=== PATIENT | male | born 1990 | race Caucasian/White ===

== ENCOUNTER 2024-01-12 10:40 | Emergency (ER) | payer OTHER, SELFPAY ==
--- NOTE | ~2024-01-12 | CT_ITS ---
History: Remote history of blunt trauma PROCEDURE: CT head without contrast. COMPARISON: None TECHNIQUE: Axial imaging of the head performed from the skull base to the vertex without IV contrast. Sagittal a nd coronal reformations obtained. DLP: 605 mGy-cm FINDINGS: The ventricles are normal in size, shape and position. There is no mass, mass effect or midline shift. There is no abnormal extra-axial fluid collection or intracranial hemorrhage. Visualized paranasal sinuses are clear. The mastoid air cells are well aerated. No acute displaced fractures within the overlying cranium. Impression: No acute intracranial hemorrhage or suspicious mass effect. Reviewed, dictated and finalized at location A. 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
[2024-01-12 10:44] VITALS: BP 128/74; PULSE 105; RESP 20; TEMP 36.8; O2SAT 98
--- NOTE | 2024-01-12 10:57 | PC.NURSE ---
pt took tylenol and sudafed and sumatriptan
--- NOTE | 2024-01-12 12:49 | ED.HA ---
HPI - Headache General Chief Complaint: Headache Stated Complaint: hit head yest/headache/vomiting Time Seen by Provider: 01/12/24 12:08 History of Present Illness HPI Narrative: 33-year-old male presenting with a headache. States he struck his head on a wall decoration yesterday and had immediate headache. States he has been unable to sleep due to the pain. Also feels nauseated after taking 1 of his 's migraine pills. Related Data Allergies Allergy/AdvReac Type Severity Reaction Status Date / Time No Known Allergies Allergy Verified 06/27/23 14:48 Review of Systems Review of Systems: All systems reviewed & are unremarkable except as noted in HPI and below PMFSH Social History Social History Social History: Smoking status: Smoker, status unknown Smokeless tobacco user: chewing tobacco Second hand tobacco smoke exposure: No Alcohol intake: current Alcohol use details: Pt only drink socially Substance use: never Substance use type: does not use Do You Feel Safe in your Home?: Yes Lack of Transportation: No Lack of Food: Never True Current Housing: I Have Housing Concerned About Future Housing: No Difficulty Paying Gas/Electric Bills: No Difficulty Paying for Meds: No Currently Unemployed: No Education: Don't Know Difficulty w/ Childcare or Family Care: No Living arrangements: with family Occupation/Education: occupation Gender identity (if verbalized by the patient): Male Sexual Orientation (if Verbalized by the Patient): Straight or Heterosexual Spiritual care concerns: No Exam Narrative: GENERAL: Well-appearing, in no acute distress, pleasant and cooperative HEAD: Normocephalic, atraumatic. EYES: PERRLA and EOMI. ENT: Grossly unremarkable NECK: Supple. CHEST: No respiratory distress. HEART: Regular rate and rhythm EXTREMITIES: Normal range of motion SKIN: Warm, dry NEURO: No focal deficits. Alert and oriented x3. PSYCH: Normal mood and affect. Course Vital Signs Vital signs: Vital Signs Temperature 98.2 F 01/12/24 10:44 Pulse Rate 105 H 01/12/24 10:44 Respiratory Rate 20 01/12/24 10:44 Blood Pressure 128/74 01/12/24 10:44 Pulse Oximetry 98 01/12/24 10:44 Oxygen Delivery Room Air 01/12/24 10:44 Temperature 98.2 F 01/12/24 10:44 Pulse Rate 105 H 01/12/24 10:44 Respiratory Rate 20 01/12/24 10:44 Blood Pressure 128/74 01/12/24 10:44 Pulse Oximetry 98 01/12/24 10:44 Oxygen Delivery Room Air 01/12/24 10:44 MDM - Headache MDM Narrative Medical decision making narrative: 33-year-old male presenting with a headache after striking his head on a painting. Vitals are stable. Exam remarkable for the above. Neurologically intact. CT brain without acute abnormalities. Patient reports significant improvement in his symptoms following p.o. Zofran and IM Toradol. He is safe for outpatient management. States here he has an appointment with his PCP scheduled for Tuesday. Appropriate supportive care and return precautions given. Patient is agreeable this plan. Discharged in stable condition. Differential Diagnosis Differential diagnosis: Likely tension headache, headache and postconcussion syndrome Medical Records Attestation: I reviewed the patient's medical records. Imaging Data Radiologist's impression: ITS Impressions Head CT 01/12/24 13:07 Impression: No acute intracranial hemorrhage or suspicious mass effect. Critical Care Time Critical Care Time Critical Care Time: No Discharge Plan Discharge Clinical Impression: Headache Patient Disposition: Home, Self-Care Condition: Stable Instructions: Antibiotic Form, Concussion (ED), Head Injury (ED) Additional Instructions: Your CT scan today is normal. Please use Tylenol and ibuprofen or naproxen for pain control. We have sent in for some nausea medicine to be used as needed. Make sure to follow-up with your PCP as scheduled. If your symptoms worsen or other concerning symptoms arise, please return to the ER. Prescriptions: New ondansetron 4 mg tablet,disintegrating 4 mg PO Q8H PRN (Reason: nausea and vomiting) Qty: 14 0RF No Action methylphenidate HCl [Ritalin] 20 mg tablet 20 mg PO BID Qty: 60 0RF lisinopril 20 mg tablet 20 mg PO DAILY Qty: 90 2RF Follow-up/Referrals: Johnnie Navarro MD [Primary Care Provider] -
[2024-01-12] MEDS: ONDANSETRON HCL ODT 4 MG TABLET PO (13:11)
[2024-01-12] MEDS: KETOROLAC 30 MG/ML VIAL (*BKC) IM (13:21)
[2024-01-12 14:20] VITALS: BP 172/80; PULSE 78; RESP 17; TEMP 36.9; O2SAT 99
== END 2024-01-12 14:23 | disposition home or self-care (01) ==
PROVIDERS: Emergency Provider Emergency Medicine; PCP Family Medicine
DX: S09.90XA Unspecified injury of head, initial encounter (principal); F17.220 Nicotine dependence, chewing tobacco, uncomplicated; W22.8XXA Striking against or struck by other objects, initial encounter
CPT/HCPCS: 70450; 96372; 99284; A9270; J1885